=== PATIENT | female | born 1990 | race Two or more races ===

== ENCOUNTER 2024-05-15 11:39 | Outpatient (REF) | payer OTHER, SELFPAY ==
[2024-05-15 13:55] LABS: MANUAL DIFF FLAG NO
[2024-05-15 13:58] LABS: Basophils Percent Auto 0.4 % (0-2); Eosinophils Absolute Auto 0.1 X10*3/uL (0.0-0.4); Eosinophils Percent Auto 1.3 % (0-4); Hematocrit 38.4 % (37.0-47.0); Hemoglobin 12.5 g/dl (12.0-16.0); Imm Gran Abs Auto 0.07 X10*3/uL (0.00-0.03); Imm Gran Pct Auto 0.9 % (0.0-0.4); Lymphocytes Absolute Auto 2.3 X10*3/uL (1.2-4.9); Lymphocytes Percent Auto 30.8 % (20-40); Mean Corpuscular HGB Conc 32.6 g/dl (31.0-35.0); Mean Corpuscular Hemoglobin 27.6 pg (27.0-33.0); Mean Corpuscular Volume 84.8 fL (80.0-98.0); Mean Platelet Volume 10.1 fL (9.4-12.3); Monocytes Absolute Auto 0.4 X10*3/uL (0.1-1.2); Monocytes Percent Auto 5.1 % (2-11); Neutrophils Absolute Auto 4.6 x10*3/uL (2.0-8.3); Neutrophils Percent Auto 61.5 % (45-73); Platelet Count 366 X10*3/uL (160-400); Red Blood Count 4.53 X10*6/uL (4.20-5.50); Red Cell Distribution Width 14.5 % (11.0-16.0); White Blood Count 7.5 X10*3/uL (4.8-10.8)
[2024-05-15 14:14] LABS: Estimated Average Glucose 103 mg/dL; Hemoglobin A1c % 5.2 % (<6.0)
[2024-05-15 14:15] LABS: Anion Gap 12 (12-20); Blood Urea Nitrogen 12 mg/dL (9-16); Calcium 9.4 mg/dL (8.4-10.2); Carbon Dioxide 25 mmol/L (22-29); Chloride 106 mmol/L (96-108); Cholesterol 163 mg/dL (<200); Estimated Glomerular Filt Rate > 60; Glucose Random 88 mg/dL (60-115); HDL Cholesterol 42 mg/dL (>40); LDL Cholesterol Calculated 109 mg/dL (<100); Sodium 139 mmol/L (135-145); Triglycerides 62 mg/dL (<150)
[2024-05-16 08:34] LABS: HBS Num1 > 1000.00 mIU/mL (0-7.99); HBc Num1 0.08 S/CO (0.00-0.79); HBsAGNum1 0.35 S/CO (0.00-0.99); HIV AB/AG Nonreactive (Nonreactive); HIV Num 1 0.06 S/CO (0.00-0.99); Hepatitis B Core Antibody Nonreactive (Nonreactive); Hepatitis B Surface Antigen Negative (Negative); ~HepC Num1 0.15 S/CO (0.00-0.79); ~Hepatitis B Surface Antibody REACTIVE (Nonreactive); ~Hepatitis C Antibody Nonreactive (Nonreactive)
== END 2024-05-15 11:40 | disposition home or self-care (01) ==
LOC: HO.CHCLDS 11:39
PROVIDERS: Visit Provider Nurse Practitioner
DX: Z13.9 Encounter for screening, unspecified (principal)
CPT/HCPCS: 36415; 80048; 80061; 83036; 85025; 86704; 86706; 86803; 87340; 87389

== ENCOUNTER 2025-02-23 | Outpatient (REF) | payer OTHER, SELFPAY ==
[2025-02-27 12:13] LABS: TS Negative Control Passed; TS Panel A 0; TS Panel B 0
[2025-02-27 12:15] LABS: TS Positive Control Passed; TSpotTB Negative
== END 2025-02-23 00:01 | disposition home or self-care (01) ==
LOC: HO.CHCLDS
PROVIDERS: Visit Provider Family Medicine
DX: Z11.1 Encounter for screening for respiratory tuberculosis (principal)
CPT/HCPCS: 36415; 86481